=== PATIENT | male | born 1990 | race Two or more races ===

== ENCOUNTER 2023-04-20 01:33 | Emergency (ER) | payer BC, MEDICAID ==
[~2023-04-20] VITALS: Ht 177.8 cm; Wt 93.2 kg
[2023-04-20 02:08] VITALS: BP 114/75; PULSE 112; RESP 20; O2SAT 97
[2023-04-20 03:01] LABS: Albumin 3.9 g/dL (3.4-5.0); Calcium 8.2 mg/dL (8.5-10.1); Potassium 3.7 mmol/L (3.5-5.1)
[2023-04-20 03:03] LABS: BUN/Creatinine Ratio 16.3 (10.0-20.0)
[2023-04-20 03:07] LABS: Hematocrit 36.7 % (41.0-53.0); Hemoglobin 12.7 g/dL (13.5-17.5); Mean Corpuscular Hemoglobin 27.2 pg (28.0-32.0); Mean Corpuscular Hgb Conc. 34.7 g/dL (32.0-36.0); Mean Corpuscular Volume 78.4 fL (80.0-100.0); Red Blood Cells 4.68 10^6/uL (4.5-5.90); Red Cell Distribution Width 13.9 % (11.8-14.3); White Blood Cell 5.3 10^3/uL (4.4-10.8)
[2023-04-20 03:10] LABS: Total Protein 6.7 g/dL (6.4-8.2)
[2023-04-20 03:13] LABS: Basophils % (manual) 0 (0.0-2.0); Blast Cells 0; Eosinophils % (manual) 0 (0-7); Metamyelocytes % 0; Myelocytes % 0; Promyelocytes % 0
[2023-04-20 04:24] LABS: Band Neutrophils % (manual) 9; Lymphocytes % (manual) 29 (10.0-50.0); Monocytes % (manual) 8 (0-12); Reactive Lymphocytes 4
== END 2023-04-20 06:32 | disposition left against medical advice (07) ==
LOC: ER 01:33
DX: K29.70 Gastritis, unspecified, without bleeding (principal); R74.9 Abnormal serum enzyme level, unspecified; K52.9 Noninfective gastroenteritis and colitis, unspecified; E78.5 Hyperlipidemia, unspecified
CPT/HCPCS: 36415; 74176; 80053; 83690; 85007; 85027